=== PATIENT | female | born 1980 | race Caucasian/White ===

== ENCOUNTER 2016-06-27 18:21 | Emergency (ER) | payer MEDICAID ==
[~2016-06-27] VITALS: Ht 157.5 cm; Wt 87.2 kg
[2016-06-27 18:32] VITALS: Ht 157.5 cm; Wt 87.2 kg
[2016-06-27] MEDS ORDERED: LORA-441 PO (21:45)
--- NOTE | 2016-06-27 21:46 | ERD ---
ER Documentation Chief Complaint Date/Time DATE: 06/27/16 TIME: 21:45 Chief Complaint Anxiety and depression X 3 days, unable to sleep. HPI 36-year-old woman presents with anxiety. She does have a history of anxiety and depression and states she was last well controlled with lorazepam. She denies having a plan to kill herself, hurt herself, or her others. She denies fevers or chills, no chest pain or shortness of breath, no vomiting or diarrhea , no headache or blurry vision. ROS All systems reviewed and are negative except as per history of present illness. Medications Home Meds Active Scripts Lorazepam* (Ativan*) 0.5 Mg Tablet, 0.5 MG PO Q8H Y for ANXIETY, #15 TAB Prov:KHALIF GUILLORY MD 06/27/16 Allergies Allergies: Coded Allergies: No Known Allergy (Unverified , 07/05/14) PMhx/Soc Anxiety/depression History of Surgery: Yes ( X 2) Anesthesia Reaction: No Hx Neurological Disorder: No Hx Respiratory Disorders: No Hx Cardiac Disorders: No Hx Psychiatric Problems: No Hx Miscellaneous Medical Probl: No Hx Alcohol Use: No Hx Substance Use: No Hx Tobacco Use: No Physical Exam Vitals Vital Signs Date Time Temp Pulse Resp B/P Pulse Ox O2 Delivery O2 Flow Rate FiO2 06/27/16 18:32 97.4 73 18 154/83 99 Physical Exam GENERAL: Well-developed, well-nourished, appears anxious HEENT: Moist mucous membranes, pink conjunctiva, no cervical spine tenderness or step-off deformities, no goiter, no jaundice or icterus, extraocular movements intact without pain. No submandibular induration, and no pharyngeal erythema NEURO: Alert and oriented 3, cranial nerves II through XII intact bilaterally, pupils equal round reactive to light, no focal deficits or facial asymmetry, sensation intact distally Strength 5/5 in upper and lower extremities bilaterally CARDIAC: Regular rate and rhythm, no murmurs rubs or gallops LUNGS: Clear bilaterally no wheezing crackles or stridor ABDOMEN: Soft nontender, no guarding, no rigidity, no rebound, no psoas sign no obturator sign. Normoactive bowel sounds SKIN: Warm and dry to touch, no abrasions, contusions, or hematomas, no lacerations, no ecchymosis, no target lesions, and without ulcers EXTREMITIES: No clubbing cyanosis or edema, calves are bilaterally symmetrical, no Homans sign, no popliteal cord sign. Distal pulses equal and bilateral PSYCH: Anxious Results 24 hrs Current Medications Medications (Trade) Dose Ordered Sig/Maria Elena Route PRN Reason Start Time Stop Time Status Last Admin Dose Admin Lorazepam (Ativan) 1 mg ONCE ONCE PO 06/27/16 22:00 06/27/16 22:01 DC 06/27/16 21:45 Procedures/MDM I administered lorazepam 1 mg p.o. for her symptoms. I gave her the address and phone to nearby facilities for continued outpatient management. I also reviewed her old medical records and it does seem she was in the past controlled with lorazepam. She stated specifically last time she was here she was given a prescription that worked for her. Differential diagnoses considered, included but not limited to acute coronary syndrome, pulmonary embolism, aortic dissection, abdominal aortic aneurysm, sepsis, stroke, meningitis, encephalitis, pneumonia, appendicitis, cholecystitis , bowel obstruction, pyelonephritis, nephrolithiasis, cystitis, as well as metabolic, hematologic, and electrolyte abnormalities. As well as abscess, cellulitis, fractures, and dislocations. Patient feels much better at this time, and vital signs are normal, symptoms have improved. I did give strict instructions to return to the ED if symptoms continue or worsen, patient will otherwise follow-up with primary care physician. Patient understood instructions and agreed to plan. Departure Diagnosis: Primary Impression: Anxiety Condition: Good Patient Instructions: Anxiety Reaction KHALIF GUILLORY MD Jun 27, 2016 21:46
[2016-06-27] MEDS ORDERED: LORAZEPAM 1 MG TAB PO ONE (22:00)
[2016-06-27 22:45] VITALS: BP 133/79; PULSE 65; RESP 16; TEMP 98.7
== END 2016-06-27 22:50 | disposition home or self-care (01) ==
LOC: E/R 18:21
DX: F41.9 Anxiety disorder, unspecified (principal)
CPT/HCPCS: Z7502; Z7610; 99283